=== PATIENT | female | born 1975 | race Caucasian/White ===

== ENCOUNTER 2016-07-02 06:44 | Day surgery (SDC) | payer BC, OTHER ==
--- NOTE | 2016-06-29 10:34 | HP ---
Admitting History and Physical - Primary Care Physician PCP: Gaurav Velazco - Admission Chief Complaint: right breast atypia History of Present Illness: 41 yo female presented for her baseline mammogram and was found to have right UOQ calcifications. Stereo core done 06/01/2016 was c/w atypia. Patient is now presenting for right breast WE with NL. History Source: Patient Limitations to Obtaining History: No Limitations - Past Surgical History Past Surgical History: Yes: (times 2) Additional Past Surgical History: myomectomy (2013) Home Medications - Allergies Allergies/Adverse Reactions: Allergies Allergy/AdvReac Type Severity Reaction Status Date / Time No Known Allergies Allergy Verified 06/29/16 10:34 - Home Medications Home Medications: Ambulatory Orders NK [No Known Home Medication] 06/29/16 Family Disease History - Family Disease History Family Disease History: CA: Father (lymphoma and squamous cell ca) Other Family History: maternal aunt-esophageal cancer. maternal aunt-gastric cancer. maternal uncle-leukemia Review of Systems - Review of Systems Constitutional: reports: No Symptoms Cardiovascular: reports: No Symptoms Respiratory: reports: No Symptoms Breasts: reports: No Symptoms Reported Physical Examination Breast(s): Yes: Other (No skin changes or nipple discharge noted bilaterally. No suspicious masses or adenopathy noted bilaterally. Bx changes noted in the high upper quad.) Problem List - Problems (1) Atypical ductal hyperplasia of right breast Code(s): N60.91 - UNSPECIFIED BENIGN MAMMARY DYSPLASIA OF RIGHT BREAST Assessment/Plan right breast WE with NL
[2016-06-30 12:53] VITALS: BMI 25.0
[2016-07-02] MEDS ORDERED: MIDAZOLAM HCL 2 MG/2 ML SINGLE DOSE VIAL ONE ×3 (15:28→15:59)
[2016-07-02] MEDS ORDERED: ACETAMINOPHEN INJECTION 100 ML IVPB ONE (15:29)
[2016-07-02] MEDS ORDERED: PROPOFOL 20 ML ONE ×2 (15:59)
[2016-07-02] MEDS ORDERED: LIDOCAINE HCL 1%, 10 MG/ML (20ML VIAL) ONE ×2 (16:01→16:16)
[2016-07-02] MEDS ORDERED: ONDANSETRON 4 MG/2 ML VIAL ONE (16:24)
[2016-07-02] MEDS ORDERED: oxyCODONE HCL 5 MG TABLET PO PRN (17:19)
[2016-07-02] MEDS ORDERED: ONDANSETRON 4 MG/2 ML VIAL IVPUSH PRN (17:19)
[2016-07-02] MEDS ORDERED: LACTATED RINGERS SOLUTION 1,000 ML IV SCH (17:30)
[2016-07-02] MEDS ORDERED: ONDANSETRON 4 MG/2 ML VIAL IVPB PRN (17:51)
[2016-07-02] MEDS ORDERED: KETOROLAC TROMETHAMINE 30 MG/1 ML VIAL IVPUSH PRN (17:51)
[2016-07-02] MEDS ORDERED: KETOROLAC TROMETHAMINE 30 MG/1 ML VIAL IVPUSH ONE (17:56)
[2016-07-02] MEDS ORDERED: ONDANSETRON 4 MG/2 ML VIAL IVPUSH ONE (17:56)
[2016-07-02] MEDS ORDERED: DEXTROSE 5%-0.45% SALINE 1,000 ML IV SCH (18:00)
[2016-07-02 18:41] VITALS: TEMP 97.9
[2016-07-02 19:09] VITALS: BP 116/72; PULSE 62
--- NOTE | 2016-07-03 10:49 | OP ---
DATE OF OPERATION: 07/02/2016 PROCEDURE: Right breast wide excision/partial mastectomy with mammographic needle localization. PREOPERATIVE DIAGNOSIS: Right breast atypia. POSTOPERATIVE DIAGNOSIS: Right breast atypia. ANESTHESIA: Local with IV sedation. SURGEON: Neil Velazco MD CONTROL TECHNICIAN: DEMETRIS Garcia DISPOSITION: There were no complications. INDICATION: Briefly, the patient is a 41-year-old G2, P2, premenopausal white female of [place] descent with no family history of breast or ovarian cancer. The patient underwent a mammography showing calcifications in the upper outer aspect of the right breast, and stereotactic biopsy showed atypical duct hyperplasia. Slide review confirmed this. She was advised to undergo a right breast wide excision and was brought in for the procedure on July 02, 2016. The patient underwent needle localization in Radiology and actually had a localization of the clip as well as some other calcifications which were just anterior to this. She was then brought to the holding area. In the holding area, site verification was made and informed consent was obtained. PROCEDURE IN DETAIL: She was brought into the operating room and laid on the OR table in a supine position. Venodyne boots were placed on the lower extremities. The wound was sterilely prepped and draped in the usual fashion. She received IV sedation. One percent lidocaine was given in a curvilinear fashion just toward the upper outer aspect of the right breast. A curvilinear incision was made, and dissection was undertaken around the needle localization sites. The breast tissue was completely removed from around the needle localizations with the wires intact within the specimen. The specimen was oriented with a long lateral and short superior suture, and specimen radiograph was performed which did not initially show the clip. A separate margin was taken on the anterior side which showed the clip in question within the anterior aspect. This was sent separately as anterior margin with the suture margin and biopsy cavity side. Hemostasis was achieved, and the wound was copiously irrigated. The wound was closed using interrupted 2-0 plain suture, then interrupted 3-0 deep dermal Vicryl suture and a running 4-0 subcuticular Biosyn suture. Mastisol/Steri-Strips were applied over the wound, compressive dressing placed over this. The patient tolerated the procedure well without difficulty and was brought to the post anesthesia care unit in stable condition and will be discharged home once discharge criteria are met. She is to follow up in the office in 1 week for a formal wound pathology check. NEIL VELAZCO M.D. [id number]
--- NOTE | 2016-07-06 15:42 | PATH ---
Surgical Pathology Report Patient Name: EVA GOMEZ [facility]. Rec. #: [id number] /Age/Gender: 1975 (Age: 41) / F Account: [id number] Location: [facility] Taken: 07/02/2016 Received: 07/02/2016 Reported: 07/06/2016 Physicians: Gaurav Velazco M.D. Specimen(s) Received A: RIGHT BREAST WIDE EXCISION B: RIGHT BREAST SUPERIOR MARGIN Clinical History Right breast atypia Final Diagnosis A. BREAST, RIGHT, WIDE EXCISION: ATYPICAL DUCTAL HYPERPLASIA (ADH) AND FLAT EPITHELIAL ATYPIA ARISING IN A BACKGROUND OF FIBROCYSTIC AND COLUMNAR CELL CHANGES WITH ASSOCIATED CALCIFICATIONS. PRIOR BIOPSY SITE CHANGES ARE PRESENT. B. BREAST, RIGHT, SUPERIOR MARGIN, EXCISION: ATYPICAL DUCTAL HYPERPLASIA (ADH) AND ATYPICAL LOBULAR HYPERPLASIA (ALH) ARISING IN A BACKGROUND OF COLUMNAR CELL CHANGES. PRIOR BIOPSY SITE CHANGES ARE PRESENT. Electronically Signed Marquita Huggins M.D. Gross Description A. Received in formalin, labeled "right breast wide excision," is a 5.4 x 3.5 x 1.6 cm. jnasen-yellow, irregular, portion of fibroadipose tissue with 2 needle localization wires present. There is a short suture marking the superior aspect and a long suture marking the lateral aspect, per the surgeon. There is no skin present. The specimen is inked as follows: superior and lateral blue; inferior green; medial yellow; anterior red; deep black. The specimen is serially sectioned from superior to inferior. Sectioning reveals diffuse dense, white, focally firm fibrous tissue. No definitive masses are identified. The specimen is entirely and sequentially submitted in 12 cassettes with the superior margin in cassette 1 and the inferior margin in cassette 12. B. Received in formalin labeled "right breast superior margin," is a 3.0 x 1.8 x 1.4 cm irregular portion of fibroadipose tissue with a suture marking the biopsy cavity side, per the surgeon. The new margin is inked green and the specimen is serially sectioned. Sectioning reveals fibrous tissue. No definitive masses are identified. There is a sanchez metallic biopsy clip identified within the specimen. The specimen is entirely and sequentially submitted in 6 cassettes with the biopsy clip in cassette 3-4. Time to formalin fixation: 13 minutes Total formalin fixation time: Approximately 25 hours. DL/07/03/2016 [facility]/07/03/2016
== END 2016-07-02 19:14 | disposition home or self-care (01) ==
LOC: FASU 06:44
PROVIDERS: ATTEND Surgery Surgical Oncology
PROC: 0HBT0ZZ Excision of Right Breast, Open Approach (ICD-10-PCS; principal; 2016-07-02 16:11)
DX: N60.91 Unspecified benign mammary dysplasia of right breast (principal); N64.89 Other specified disorders of breast; N62 Hypertrophy of breast
CPT/HCPCS: 19281; 19282; 88307-TC; 94760